=== PATIENT | female | born 1975 ===

== ENCOUNTER 2023-07-05 08:25 | Day surgery (SDC) | payer OTHER ==
[~2023-07-05] VITALS: Ht 162.6 cm; Wt 82.3 kg
[~2023-07-05 08:25] MED LIST: Lactated Ringer's 1,000 ML IV ONE
[2023-07-05] MEDS ORDERED: ATEN25 PO (08:58)
[2023-07-05] MEDS ORDERED: HYDCHL25 PO (08:59)
[2023-07-05] MEDS ORDERED: METHI10 PO (08:59)
[2023-07-05] MEDS ORDERED: propofoL 20 ML IV ONE ×3 (09:00→10:24)
[2023-07-05] MEDS ORDERED: Ondansetron HCl 2 MG / ML 2ML Vial ONE ×2 (09:01→11:26)
[2023-07-05] MEDS ORDERED: Dexamethasone Sod Phos 10 MG/ML 1ML VIAL ONE (09:01)
[2023-07-05] MEDS ORDERED: Rocuronium Bromide 10 MG/ML 5ML Injection IV ONE (09:01)
[2023-07-05] MEDS ORDERED: FentaNYL Citrate 50 MCG/ML 2 ML Injection ONE ×2 (09:03→11:08)
[2023-07-05] MEDS ORDERED: Lactated Ringer's 1,000 ML IV ONE ×2 (09:05→10:40)
[2023-07-05] MEDS ORDERED: Ketorolac Tromethamine 30mg Vial ONE (09:37)
--- NOTE | 2023-07-05 09:42 | NUR ---
07/05/23 0942 Rica Talbert 10ML OF LIDOCAINE 1% MIXED AND VERIFIED WITH 0.05ML OF EPI (1MG/ML) TO MAKE LIDOCAINE 1% WITH EPI 1:200,000 FOR INJECTION AT THE OPSITE BY DR GIBSON. 1.5ML INJECTED AT THE START OF PROCEDURE.
[2023-07-05] MEDS ORDERED: Lidocaine HCl 1% 20 ML MDV INJ ONE (09:44)
[2023-07-05] MEDS ORDERED: EPINEPhrine HCl 1 MG/ML 1ML Amp XX ONE (09:44)
[2023-07-05] MEDS ORDERED: Labetalol HCL 5 MG/ML 4ML Injection (Single Dose) ONE (10:01)
--- NOTE | 2023-07-05 11:03 | NUR ---
07/05/23 1103 Robyn Aceves PER ANESTHESIOLOGIST VERBALIZES TOOK TAPE OFF LEFT SIDE OF FACE & MADE AN ABRASION. PT. VERBALIZES SCRATHCY THROAT & UNCOMFORTABLE TO NECK AREA WHERE DRESSING IS.
--- NOTE | 2023-07-05 11:47 | NUR ---
07/05/23 1147 Robyn Aceves PT. STILL A LITTLE NAUSEATED. PT. MEDICATED EARLIER. PT. HAS GLUTEN ALLERGY SO CAN'T HAVE CRACKERS. OFFERED CHEESE OR APPLE SAUCE, REFUSED.
[2023-07-05] MEDS ORDERED: Metoclopramide HCl 5MG / ML 2ML Vial ONE (13:00)
== END 2023-07-05 13:23 | disposition home or self-care (01) ==
LOC: ORSCSDS 08:25
PROVIDERS: Otolaryngology
PROC: 0GTG0ZZ Resection of Left Thyroid Gland Lobe, Open Approach (ICD-10-PCS; principal; 2023-07-05 09:30)
DX: E05.10 Thyrotoxicosis with toxic single thyroid nodule without thyrotoxic crisis or storm (principal); D34 Benign neoplasm of thyroid gland; I10 Essential (primary) hypertension; Z79.899 Other long term (current) drug therapy
CPT/HCPCS: 88307; J0171; J1100; J1885; J2405; J2704; J2765; J3010; J7120